=== PATIENT | female | born 1970 | race Caucasian/White ===

== ENCOUNTER 2020-04-09 06:45 | Inpatient (IN) ==
--- NOTE | 2020-03-25 15:16 | History and Physical Report ---
DATE OF ADMISSION: 04/09/2020 CHIEF COMPLAINT: Urinary retention, pelvic pressure, frequent urination. HISTORY OF PRESENT ILLNESS: The patient is a 49-year-old nullip. She has over a year history of frequent urination. She has to urinate every 2 hours. She has to get up during the night and she has even been seen in the Emergency Room on several occasions with urinary retention and had to be catheterized. Her periods stopped in 2018. She does have problems with night sweats, hot flashes. As previously stated, she has had problems with urinary retention requiring catheterization and she was ultrasounded and found to have a large fibroid uterus consistent with about a 14-15 weeks' gestational size uterus. Pelvic exam revealed that the fibroid to be pressing on the bladder. Presently being scheduled for a total abdominal hysterectomy with preservation of the ovaries. ALLERGIES: She has no known drug allergies. PAST SURGICAL HISTORY: She has had a tonsillectomy and adenoidectomy and she had wisdom teeth removed. PAST MEDICAL HISTORY: No history of rheumatic fever, heart disease, diabetes, or tuberculosis. SOCIAL HISTORY: No smoking. No excessive alcohol intake. Works at [employer] in [facility]. FAMILY HISTORY: Mom 74, in bad health, had a gastric bypass, has difficulty with weight, bilateral knee replacements. Father at age 77, complications of diabetes. She has 2 sisters in good health. REVIEW OF SYSTEMS: She did have migraines when she was still getting her periods. PHYSICAL EXAMINATION: GENERAL: Well-developed, well-nourished 49-year-old white female, alert, oriented x3 and cooperative, no acute distress, appears her stated age. EYES: Conjunctivae are pink. Sclerae white, no evidence of jaundice. EARS: Had normal light reflex bilaterally. NOSE: Had normal mucosa. Septum is midline. There were no polyps. THROAT: No erythema or evidence of infection. Teeth are in good state of repair. HEAD: Normocephalic, normal distribution of hair. NECK: Supple. Trachea midline. Thyroid is not enlarged. There is no adenopathy appreciated. Both carotids are of good intensity. CHEST: Clear to auscultation and percussion. No wheezes, rales or rhonchi appreciated. HEART: Had regular rhythm. S1, S2 are normal. PELVIC: Revealed normal-appearing cervix. A 14-16 weeks' gestational size uterus, acutely anteverted and pressing on the bladder. No adnexal masses appreciated. MUSCULOSKELETAL: Revealed no calf tenderness. IMPRESSIONS OF THIS CASE: Status post removal of wisdom teeth, status post tonsillectomy and adenoidectomy. Large symptomatic fibroid uterus.
--- NOTE | 2020-04-02 10:16 | PAT Medication Instructions ---
Medication Instructions Date of Service April 02, 2020 Home Medications Biotin 500 mcg PO QAM Menopause Support Maximum 1 tab PO QAM [id number] [Excedrin Migraine] 2 tab PO Q6H PRN cholecalciferol (vitamin D3) [Vitamin D3] 25 mcg PO QAM coQ10 (ubiquinol) 100 mg PO QAM ibuprofen [Motrin] 200 mg PO Q6H ASK your surgeon for instructions [id number]-bsmsejmsvvhqr-mxylvayb [Excedrin Migraine] 2 tab PO Q6H PRN ibuprofen [Motrin] 200 mg PO Q6H STOP taking 2 weeks before surgery (or as soon as possible if surgery is within 2 weeks) coQ10 (ubiquinol) 100 mg PO QAM DO NOT take the morning of surgery Biotin 500 mcg PO QAM Menopause Support Maximum 1 tab PO QAM cholecalciferol (vitamin D3) [Vitamin D3] 25 mcg PO QAM Other Notes If you have any questions please call us at [phone] or [phone] or [phone] or [phone]
--- NOTE | 2020-04-06 09:46 | Anesthesiology Consultation ---
Date of Service April 06, 2020 Assessment & Plan (1) Encounter for pre-operative examination: *Per PAT assessment on 04/06: Travel screen- Return from travel to [place], [place] to visit small group of friends/family (strictly following COVID precaution guidelines). Lives in [facility]. 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 Patient advised to self-isolate/refrain from travel until after DOS. No known COVID-19 positive contacts. No current COVID-19 related symptoms. Patient having preop protocol COVID-19 testing 04/06 ([place]). Results pending. - Check test AM DOS Chart Review Chart Review: Acceptable Risk for Surgery and Patient seen in Pre Admission Testing Teaching & Discussion Pre-Anesthesia Teaching/Discussion Notes: Instructed NPO after midnight before surgery,except medications with 15 cc of water. Medication instructions provided according to the PAT guidelines. History Surgery Operation Date: 11/21/19 12:50 Proposed Procedures p Total Abdominal Hysterectomy (Preserve Ovaries) - Doc Puga MD Operation Date: 04/09/20 11:30 Proposed Procedures p Total Abdominal Hysterectomy (Preserve Ovaries) - Doc Puga MD Height/Weight Height: 5 ft 8 in Weight: 88 kg Allergies Allergy/AdvReac Type Severity Reaction Status Date / Time No Known Allergies Allergy Verified 04/01/20 08:32 Medications Home Medications Medication Instructions Recorded Confirmed Last Taken Biotin 500 mcg PO QAM 04/01/20 04/01/20 Unknown Menopause Support Maximum 1 tab PO QAM 04/01/20 04/01/20 Unknown ulvegbq-undwjochmacem-zuczvjdx 2 tab PO Q6H PRN 04/01/20 04/01/20 Unknown [Excedrin Migraine] cholecalciferol (vitamin D3) 25 mcg PO QAM 04/01/20 04/01/20 Unknown [Vitamin D3] coQ10 (ubiquinol) 100 mg PO QAM 04/01/20 04/01/20 Unknown ibuprofen [Motrin] 200 mg PO Q6H 04/01/20 04/01/20 Unknown Past Medical History Medical History Bradycardia remote hx (15 years ago)- no issues since, further workup unremarkable Degenerative disc disease lumbar Depression Migraine Temporomandibular joint disorder occasional clicking, no locking Urinary retention hx Exercise / Class Metabolic Activity II 4-5 Yardwork/Stairs/Walk up hill (one flight of stairs (no chest pain/no sob)) Past Family History Family History Mother Family history of reaction to anesthesia PONV Father Family history of diabetes mellitus Grandfather (Maternal) Family history of diabetes mellitus Past Surgical History Surgical History History of tonsillectomy History of tooth extraction WISDOM TEETH Past Anesthesia History No Family Hx of Anesthesia Complications and Other ("slow to wake" with remote tonsillectomy ) History of PONV No Hx of PONV and Hx of Motion Sickness Social History Smoking Status: Never smoker Do You Dip or Chew Tobacco: No Hx Alcohol Use: Yes Alcohol type: beer and wine alcohol intake frequency: a few times a week Hx Substance Use: No Review of Systems Patient denies chest pain, shortness of breath, dyspnea on exertion, fever, c hills, cough, wheezing, palpitations. Physical Exam Vital Signs VITALS BP 136/86 P 67 TEMP 97.9 SP02 98%RA RESP 18 PHYSICAL Full neck and c-spine range of motion. Full TMJ range of motion. TMD 3 finger breaths Mallampati Score 2 Dentition: intact, + crown on molar Lungs: clear throughout to auscultation Cardiac: regular rate and rhythm, no murmurs noted Spine: normal Extremities: no edema Testing Laboratory Results 04/06/20 10:25 04/06/20 10:25 PT 10.4 Seconds (9.0-12.0) 04/06/20 10:25 INR 1.0 (0.9-1.1) 04/06/20 10:25 APTT 29.6 Seconds (21.0-31.0) 04/06/20 10:25 Blood Type O Positive 04/06/20 10:25 Antibody Screen NEGATIVE 04/06/20 10:25 Electrocardiogram Date: 04/06/20 Findings: + SB @ (59)
[2020-04-06 11:28] LABS: Basophils # (auto) 0.03 K/uL (0-0.2); Basophils % (auto) 0.7 %; Eosinophils # (auto) 0.27 K/uL (0-0.5); Hematocrit (blood only) 45.9 % (37-47); Hemoglobin 15.3 g/dL (12.0-16.0); Immature Granulocytes # (auto) 0.01 K/uL (0.00-0.02); Immature Granulocytes % (auto) 0.2 %; Mean Corpuscular Hemoglobin 31.5 pg (25-34); Mean Corpuscular Hgb Conc 33.3 g/dL (32-36); Mean Corpuscular Volume 94.6 fL (80-100); Mean Platelet Volume 11.4 fL (7.4-10.4); Monocytes % (auto) 11.1 %; Neutrophils # (auto) 1.89 K/uL (1.4-6.5); Platelet Count 235 K/uL (130-400); RDW Coefficient of Variation 13.5 % (11.5-14.5); Red Blood Count 4.85 M/uL (4.2-5.4)
[2020-04-06 11:56] LABS: Partial Thromboplastin Ratio 1.1; Partial Thromboplastin Time 29.6 Seconds (21.0-31.0); Prothrombin Time 10.4 Seconds (9.0-12.0)
[2020-04-06 12:15] LABS: Potassium 4.5 mmol/L (3.5-5.1)
[2020-04-06 12:16] LABS: BUN Creatinine Ratio 18.2 (10-20); Calcium 9.2 mg/dl (8.5-10.1); Creatinine Clr Calc Pharmacy 86.8 ml/min; Est GFR (African American) 86.4; Est GFR (Non-African American) 74.6
--- NOTE | 2020-04-06 12:17 | Electrocardiogram Report ---
Test Reason : Blood Pressure : / mmHG Vent. Rate : 059 BPM Atrial Rate : 059 BPM P-R Int : 186 ms QRS Dur : 088 ms QT Int : 418 ms P-R-T Axes : 063 004 024 degrees QTc Int : 413 ms Sinus bradycardia Otherwise normal ECG No previous ECGs available Confirmed by Claude Bal ([id number]) on 04/06/2020 12:17:19 PM Referred By: Doc Puga Confirmed By:Claude Bal
[~2020-04-09 06:45] MED LIST: LR 15ML/HR IV SCH; cefOXitin 2,000 MG in DEXTROSE 5% 50 ML IV SCH
[2020-04-09] MEDS ORDERED: MoRPHine SULFATE PF 1 MG/ML 10 ML AMP/VIAL ONE (08:16)
[2020-04-09] MEDS ORDERED: SCOPOLAMINE 1.5 MG TDSY TD ONE (08:17)
[2020-04-09] MEDS ORDERED: MIDAZOLAM HCL 1 MG/ML 2ML VIAL ONE (08:17)
[2020-04-09] MEDS ORDERED: LACTATED RINGER'S 500 ML IV PRN (08:19)
[2020-04-09] MEDS ORDERED: ePHEDrine sulfate 50 MG/ML AMP IV PRN (08:19)
[2020-04-09] MEDS ORDERED: MoRPHine SULFATE PF 1 MG/ML 10 ML AMP/VIAL INT SPINAL ONE (08:19)
[2020-04-09] MEDS ORDERED: MEPERIDINE HCL 25 MG/ML CARP/VIAL IV PRN (08:19)
[2020-04-09] MEDS ORDERED: DiphenhydrAMINE HCL 50 MG/ML VIAL IV PRN (08:19)
[2020-04-09] MEDS ORDERED: PROMETHAZINE HCL 12.5 MG in SODIUM CHLORIDE 0.9% 50 ML IV PRN (08:19)
[2020-04-09] MEDS ORDERED: NALOXONE HCL 1 MG in SODIUM CHLORIDE 0.9% 1000ML 1,000 ML IV PRN (08:19)
[2020-04-09] MEDS ORDERED: ONDANSETRON INJ 2 MG/ML 2 ML VIAL IV PRN (08:19)
[2020-04-09] MEDS ORDERED: KETOROLAC 30 MG/ML VIAL IV PRN (08:19)
[2020-04-09] MEDS ORDERED: NALOXONE HCL 0.4 MG/1 ML VIAL/CARP IV PRN (08:19)
[2020-04-09] MEDS ORDERED: NALOXONE HCL 0.08 MG in SYRINGE 1.8 ML IV PRN (08:19)
--- NOTE | 2020-04-09 08:29 | History & Physical Bridge Note ---
Date of Service April 09, 2020 History & Physical Bridge Note I have examined the patient, reviewed the History & Physical and in the interval since the performance of the History & Physical I have noted the following changes of clinical significance: no changes noted
[2020-04-09] MEDS ORDERED: SCOPOLAMINE 1.5 MG TDSY TD SCH (08:30)
[2020-04-09] MEDS ORDERED: SODIUM CHLORIDE 0.9% 1000ML 1,000 ML IV SCH (08:30)
[2020-04-09] MEDS ORDERED: NO NARCOTICS OR SEDATIVES SCH (08:30)
[2020-04-09] MEDS ORDERED: HEPARIN (PORCINE) 1000 UNIT/ML 10 ML (CATH LAB USE ONLY) ONE (08:55)
[2020-04-09] MEDS ORDERED: fentaNYL citrate 100 MCG/2 ML VIAL ONE (09:34)
[2020-04-09] MEDS ORDERED: GLYCOPYRROLATE 0.2 MG/ML VIAL ONE (09:52)
[2020-04-09] MEDS ORDERED: ONDANSETRON INJ 2 MG/ML 2 ML VIAL ONE (09:52)
[2020-04-09] MEDS ORDERED: LIDOCAINE HCL 2% 2 ML VIAL/AMP(20MG/ML) INFIL ONE (09:52)
[2020-04-09] MEDS ORDERED: ROCURONIUM BROMIDE 10 MG/ML 5 ML VIAL IV ONE (09:52)
[2020-04-09] MEDS ORDERED: LARYING-O-JET KIT (LTA) ONE (09:52)
[2020-04-09] MEDS ORDERED: DEXAMETHASONE SOD INJ 4 MG/ML VIAL ONE (09:52)
[2020-04-09] MEDS ORDERED: NEOSTIGMINE METHYLSULFATE 5 MG/5 ML SYR ONE (09:52)
[2020-04-09] MEDS ORDERED: SODIUM CHLORIDE 0.9% 250 ML IV PRN (10:35)
--- NOTE | 2020-04-09 13:03 | Post Operative Brief Note ---
Immediate Post Op Note v1 Date of Surgery April 09, 2020 Pre & Post Diagnosis Operation Date: 11/21/19 12:50 <No data on this case meets the specified criteria> Operation Date: 04/09/20 08:40 Pre-Op Diagnosis: Fibroid Uterus Post-Op Diagnosis: Fibroid Uterus I identified the patient and participated in the time-out.: Yes Procedure Operation Date: 11/21/19 12:50 <No data on this case meets the specified criteria> Operation Date: 04/09/20 08:40 Actual Procedures p Total Abdominal Hysterectomy (Preserve Ovaries)(Not Applicable) - Doc Puga MD repair of bladder laceration Surgeon Doc Puga MD Supplier Development Manager Dr Negro Linder Estimated Blood Loss 500 Findings Consistent with Post-Op Diagnosis large fixed fibroid uterus displacement of bladder pelvic adhesions laceration of bladder Specimens fibroid uterus large portion of the cervix Drains Flynn Catheter and Other (mickey drain with saftey pin through cervical os) Anesthesia Type General/Epidural Complications lacerationb of the bladder Disposition Accompanied Patient To Recovery: No Disposition: Surgical ICU
--- NOTE | 2020-04-09 13:50 | Operative Report (OR) ---
DATE OF OPERATION: 04/09/2020 INDICATIONS FOR SURGERY: Frequent urination, symptomatic fibroid uterus. PREOPERATIVE DIAGNOSIS: Symptomatic large fibroid uterus. POSTOPERATIVE DIAGNOSES: Bladder displacement, bladder laceration, large fibroid uterus, dense pelvic adhesions, adhesions involving the plexus of the bladder. SURGEON: Olegario Puga MD. ASSISTANTS: Dr. Tom and Dr. Linder. ESTIMATED BLOOD LOSS: 500 mL. PROCEDURE: Total abdominal hysterectomy with preservation of a small portion of the cervix, repair of bladder laceration. ESTIMATED BLOOD LOSS: 500 mL. ANESTHESIA: General, spinal. OPERATIVE FINDINGS AND PROCEDURE: The patient was brought to the OR table, correctly identified by armband and conversation. General anesthesia was administered. Perineum and vagina were painted with Betadine paint, draped in usual sterile fashion. Compression stockings were applied. Flynn catheter was inserted into the bladder, connected to gravity drainage. Lower abdomen was prepped with an alcohol based sterilizing solution, draped in the usual sterile fashion. We palpated the size of the fibroid and judged that it would be deliverable through a normal Pfannenstiel incision. We then proceeded to make a generous Pfannenstiel incision. It was carried down to the anterior fascia. Hemostasis was secured by electrocauterization. Fascia was incised transversely from the underlying muscle by blunt and sharp dissection. Recti muscles were in the midline and then we entered the peritoneum. We entered high on the separation of the rectus muscle. Despite this, we eventually got into the bladder and we could see the Flynn catheter. This was despite the fact that we were entering the peritoneum about an inch below the umbilicus, so we then were able to enter into the peritoneum and I repaired the bladder laceration with a running chromic gut suture. The laceration was about 1 inch, it was on the very dome of the bladder and I repaired it with a 2-layer chromic gut closure. We then proceeded to expose the pelvis. The fibroid filled the pelvis and it was very immobile. We could not get it through the inlet of the pelvis. Also, there was a lot of large venous plexus on the top of the fibroid, which I felt was a part of the bladder venous plexus. I started then to ligate the blood supplies to the fibroid by doubly ligating the round ligaments on either side proximally and distally, identifying the ovarian ligament and tube and also then ligating them doubly proximally and distally. Before we started to cut, we called for surgical assistance. Dr. Linder came and then we started to cut some of the pedicles. We worked mostly on the right side where we ligated and cut the attachment of the ovarian ligament and tube to the right fundal area, dissected through the broad ligament and then did multiple clamping and cutting of the venous plexus that was on the top of the fundus. We were able to control the bleeding nicely and then expose the junction of the cervix and the fundus. We were able to get a curved Ricky down in there and then ligated proximally and distally, cut and then ligated the uterine vessel on the patient's right side. We did this with minimal bleeding. We then turned our attention to the left side and we took the peritoneum reflection off the fundus, but then as soon as we did that, we got into the large amount of veins and we had to serially clamp and cut these. We then cut the attachment of the tube and ovarian ligament to the fundus. We dissected through the broad ligament with blunt and sharp dissection, I was able finally to get everything down on the operative field and get the junction of the cervix and the uterus. We then doubly clamped the uterine vessels on that side and tied them off. Then, we excised the fundus and fibroid of the uterus with an electrical knife and then grabbed the cervix with a double tooth tenaculum. At this point, we had good visualization and good control of the bleeding. The right adnexa was adhesed to the right pelvic wall. We dissected that free. We took a bite on either side of the cervix, cut with a stump and then ligated with a chromic gut suture and also with that suture, re-ligated the uterine vessels on either side, cut another portion of the cervix out and then I whipstitched open the center of the cervix to the uterine vessels and uterosacral vessels. I then placed a [place] drain with a safety pin into the cervical opening and into the vagina. I then reperitonealized both sides with a chromic gut suture by bringing the peritoneal edges from the right side down to the cervix and elevating the ovary out of the pelvis and then the same thing with the left side reapproximating the peritoneum with small bites. I then tied these to each other. I checked for hemostasis. Hemostasis was excellent. We washed the pelvis clean, took out all the packs. Then I did a careful anatomical approximation of the anterior abdominal wall. Peritoneum was closed with a mattress suture of chromic catgut. Recti muscles were approximated with interrupted [id number]-[id number] suture of chromic catgut. It should be noted that the bladder then immediately went back into its normal position. By the time I closed, you could not even see where the repair had been done. I closed the muscle with interrupted [id number] sutures. I then carefully identified the fascial defect on either side and did a wide approximation of a continuous Vicryl from the right fascial defect to the middle and then from the left fascial defect to the middle, then I washed out the incision. SubQ was closed with a running plain and skin edges were approximated with staple clips. Following this, the bloody urine had cleared. There was good urine output. The patient tolerated the procedure well and left the OR in good condition. I attest to the content of the Intraoperative Record and any orders documented therein. Any exception s are noted below.
--- NOTE | 2020-04-09 14:02 | Anesthesiology Progress Note ---
Date of Service April 09, 2020 Anesthesia Post Procedure Vital Signs Vital Signs: Temp Pulse Pulse Resp BP BP Pulse Ox 04/09/20 13:55 53 L 12 101/60 98 04/09/20 13:45 36.6 C 54 L 16 95/60 L 98 04/09/20 13:35 55 L 15 98/59 L 97 04/09/20 13:25 62 15 101/64 96 04/09/20 13:15 71 13 104/68 96 04/09/20 13:08 36.6 C 80 23 110/73 97 04/09/20 07:18 36.7 C 77 18 133/90 98 Pain Intensity Abdomen: Pain Intensity: 0 Transfer of Care Handoff Completed per policy Notes Mental Status: alert / awake / arousable Patient Amnestic to Procedure: Yes Nausea / Vomiting: adequately controlled Pain: adequately controlled Airway Patency, RR, SpO2: stable & adequate BP & HR: stable & adequate Hydration State: stable & adequate Anesthetic Complications: no major complications apparent
[2020-04-09] MEDS ORDERED: SENNA 8.6 MG TAB PO PRN (14:29)
[2020-04-09] MEDS ORDERED: bisacodyL 10 MG SUPP PR PRN (14:29)
[2020-04-09] MEDS ORDERED: MAGNESIUM HYDROXIDE SUSP 30 ML UDC PO PRN (14:29)
[2020-04-09] MEDS: LACTATED RINGER'S 1,000 ML IV SCH ×2 (16:07→23:38)
[2020-04-09 19:34] LABS: Hematocrit (blood only) 42.5 % (37-47); Hemoglobin 13.8 g/dL (12.0-16.0)
[2020-04-09] MEDS: CHECK SCOPOLAMINE PATCH PLACEMENT SCH (23:56)
[2020-04-10] MEDS ORDERED: ONDANSETRON INJ 2 MG/ML 2 ML VIAL IV PRN (02:19)
[2020-04-10] MEDS ORDERED: DC INTRASPINAL MORPHINE ONE (02:19)
[2020-04-10] MEDS ORDERED: OXYCODONE/ACETAMINOPHEN 5mg/325mg TAB PO PRN (02:19)
[2020-04-10] MEDS ORDERED: MEPERIDINE HCL 50 MG/ML CARP IV PRN (02:19)
[2020-04-10] MEDS ORDERED: PROMETHAZINE HCL 25 MG in SODIUM CHLORIDE 0.9% 50 ML IV PRN (02:19)
[2020-04-10] MEDS ORDERED: KETOROLAC 30 MG/ML VIAL IV PRN (02:20)
[2020-04-10 07:08] LABS: Basophils # (auto) 0.01 K/uL (0-0.2); Basophils % (auto) 0.1 %; Eosinophils # (auto) 0.02 K/uL (0-0.5); Eosinophils % (auto) 0.3 %; Hematocrit (blood only) 36.7 % (37-47); Hemoglobin 12.4 g/dL (12.0-16.0); Immature Granulocytes # (auto) 0.01 K/uL (0.00-0.02); Immature Granulocytes % (auto) 0.1 %; Lymphocytes # (auto) 1.17 K/uL (1.2-3.4); Lymphocytes % (auto) 16.2 %; Mean Corpuscular Hemoglobin 32.1 pg (25-34); Mean Corpuscular Hgb Conc 33.8 g/dL (32-36); Mean Corpuscular Volume 95.1 fL (80-100); Mean Platelet Volume 10.4 fL (7.4-10.4); Monocytes # (auto) 0.64 K/uL (0.11-0.59); Monocytes % (auto) 8.9 %; Neutrophils # (auto) 5.36 K/uL (1.4-6.5); Neutrophils % (auto) 74.4 %; Platelet Count 188 K/uL (130-400); RDW Coefficient of Variation 13.8 % (11.5-14.5); RDW Standard Deviation 47.7 fL (36.4-46.3); Red Blood Count 3.86 M/uL (4.2-5.4); White Blood Count 7.21 K/uL (4.8-10.8)
[2020-04-10] MEDS: IBUPROFEN 600 MG TAB PO PRN ×4 (07:21→23:13)
[2020-04-10] MEDS: CHECK SCOPOLAMINE PATCH PLACEMENT SCH ×3 (07:22→23:14)
--- NOTE | 2020-04-10 12:26 | Obstetrical Progress Note ---
Date of Service April 10, 2020 Assessment & Plan Admission and Anticipated Discharge Date Admission Date: April 09, 2020 Physical Exam Physical Exam: abdomen soft and non tender incision is clean and dry bandage removed bowel sounds present urine clean vaginal bleeding scant hgb 12.4 Results & Data ([facility]) Vital Signs (Past 12 Hours) Vital Signs Temp Pulse Resp BP Pulse Ox 04/10/20 07:15 37.1 C 66 16 99/62 L 96 04/10/20 03:50 37.1 C 68 16 98/62 L 95 04/10/20 02:05 16 95 04/10/20 01:16 16 96
[2020-04-11 06:28] LABS: Basophils # (auto) 0.01 K/uL (0-0.2); Basophils % (auto) 0.2 %; Eosinophils # (auto) 0.15 K/uL (0-0.5); Eosinophils % (auto) 2.6 %; Hematocrit (blood only) 35.4 % (37-47); Hemoglobin 11.4 g/dL (12.0-16.0); Immature Granulocytes # (auto) 0.01 K/uL (0.00-0.02); Immature Granulocytes % (auto) 0.2 %; Lymphocytes # (auto) 1.41 K/uL (1.2-3.4); Lymphocytes % (auto) 24.3 %; Mean Corpuscular Hemoglobin 31.1 pg (25-34); Mean Corpuscular Hgb Conc 32.2 g/dL (32-36); Mean Corpuscular Volume 96.7 fL (80-100); Mean Platelet Volume 10.7 fL (7.4-10.4); Monocytes % (auto) 10.3 %; Neutrophils # (auto) 3.63 K/uL (1.4-6.5); Neutrophils % (auto) 62.4 %; Platelet Count 175 K/uL (130-400); RDW Coefficient of Variation 13.7 % (11.5-14.5); RDW Standard Deviation 49.1 fL (36.4-46.3); Red Blood Count 3.66 M/uL (4.2-5.4); White Blood Count 5.81 K/uL (4.8-10.8)
[2020-04-11] MEDS: IBUPROFEN 600 MG TAB PO PRN ×2 (06:28→12:53)
[2020-04-11] MEDS: CHECK SCOPOLAMINE PATCH PLACEMENT SCH (07:33)
--- NOTE | 2020-04-11 11:32 | Obstetrical Progress Note ---
Date of Service April 11, 2020 Assessment & Plan Admission and Anticipated Discharge Date Admission Date: April 09, 2020 Physical Exam Physical Exam: abdomen soft and non tender incision is clean and dry ambulating well urine is clear no calf tenderness mickey drain with safety pin removed vaginal bleeding scant hgb 11.4 Results & Data ([facility]) Vital Signs (Past 12 Hours) Vital Signs Temp Pulse Resp BP 30/20 08:06 37.2 C 66 18 100/67
--- NOTE | 2020-04-11 21:42 | Discharge Summary (DS) ---
The patient was admitted with a symptomatic large uterine fibroids. She had difficulty with this for years. Most of the difficulty showed up with urinary problems, urinary retention. On the day of admission, she was taken to the OR, she was given prophylactic antibiotics. We had a perforation into the bladder due to the fact that the bladder was displaced anteriorly and high. We repaired this with a 2-layer chromic gut suture repair, got into the abdomen. She had a large fibroid which essentially filled the pelvis and had essentially no mobility. We widened the incision and then systematically started clamping the vessels. Eventually, we were able to remove the fibroid with an acceptable amount of bleeding. We left a small portion of the cervix and placed a [place] drain through the cervical os. Postoperatively, the patient did well. Hemoglobin went from about 13 to about 11.5. She remained afebrile throughout her postoperative course. The urine quickly turned normal with no blood and on the second postoperative day, Pablo drain with a safety pin was removed. Her hemoglobin was stable. She was sent home with a leg bag Flynn catheter and told to return to the office in a week for removal of mimi and she was going to return in 2 weeks for removal of the catheter. At the time of discharge, was ambulating well, eating well, pain was well controlled with a combination of Percocet and Motrin. She was also given a prescription for Estrace 1 mg tablets to resolve some of her menopausal symptoms.
== END 2020-04-11 13:05 | disposition home or self-care (01) | DRG 742 ==
LOC: ASU 06:45 → 4N 13:43 → 4S2 04-10 16:04